=== PATIENT | male | born 1930 | race Caucasian/White ===

== ENCOUNTER 2020-09-19 16:49 | Inpatient (IN) ==
[2020-09-19] MEDS ORDERED: Naloxone 0.4 MG/ML INJ IVP PRN (20:19)
[2020-09-19] MEDS ORDERED: Artificial Tears SOLN 15 ML BOTTLE BOTH EYES PRN (20:25)
[2020-09-19] MEDS ORDERED: *HR* Dextrose 50 % in Water (Vial) 50 ML VIAL IVP PRN (20:29)
[2020-09-19] MEDS ORDERED: D5% in Water 1,000 ML IVC PRN (20:29)
[2020-09-19] MEDS ORDERED: Dextrose Gel 15 GM/37.5 ML TUBE PO PRN ×2 (20:29)
[2020-09-19] MEDS ORDERED: *HR* Metoprolol 5 MG/5 ML VIAL IVP PRN (20:42)
[2020-09-19] MEDS: FentaNYL (PF) 1,000 MCG/100 ML IV.SOLN IVC SCH (20:45)
[2020-09-19] MEDS: Chlorhexidine Rinse 15 ML MOUTHWASH MM SCH (21:18)
[2020-09-19] MEDS: Midazolam HCl 50 MG/100 ML IV.SOLN IVC SCH (22:15)
[2020-09-19 22:18] LABS: ABG Base Excess -3 mEq/L (-2 to 3); ABG HCO3 22 mEq/L (21-27); ABG Oxygen Saturation 99 % (95-98); ABG PCO2 37 mmHg (35-45); ABG PH 7.38 pH Units (7.32-7.45); ABG PO2 155 mmHg (85-104); ABG TCO2 23 mEq/L (20-26); Blood Gas VT 450 cc
[2020-09-19] MEDS ORDERED: Amiodarone Premix 360 MG/200 ML BAG IVC ONE (22:45)
[2020-09-19] MEDS: Insulin LISPRO 300 UNITS/3 ML VIAL SUBQ SCH (23:24)
[2020-09-19] MEDS: Artificial Tears SOLN 15 ML BOTTLE BOTH EYES SCH (23:24)
[2020-09-20] MEDS: Amiodarone Premix 360 MG/200 ML BAG IVC SCH ×2 (00:53→13:40)
[2020-09-20] MEDS: Artificial Tears SOLN 15 ML BOTTLE BOTH EYES SCH ×5 (03:02→19:45)
[2020-09-20 03:07] LABS: Hemoglobin 9.3 g/dL (12.9-16.9); Mean Corpuscular Hemoglobin 28.7 pg (28.0-33.3); Mean Corpuscular Volume 92.6 fL (83.0-100.0); Mean Platelet Volume 10.1 fL (9.4-12.4); Platelet Count 227 K/mcL (140-400); Red Blood Count 3.24 M/mcL (4.19-5.50); Red Cell Distribution Width 15.5 % (11.5-14.5); White Blood Count 9.9 K/mcL (4.3-11.1)
[2020-09-20 03:15] LABS: INR 1.6; Prothrombin Time 17.7 Seconds (9.4-12.1)
[2020-09-20 03:30] LABS: Alanine Aminotransferase 8 Units/L (7-52); Albumin 2.8 g/dL (3.5-5.7); Albumin/Globulin Ratio 0.8 (1.1-2.2); Alkaline Phosphatase 53 Units/L (34-104); Anisocytosis 1+ (Not Present); Aspartate Amino Transferase 9 Units/L (13-39); BUN/Creatinine Ratio 43 (6-26); Bilirubin,Direct 0.1 mg/dL (0.0-0.2); Bilirubin,Indirect 0.3 mg/dL (0.0-1.0); Bilirubin,Total 0.4 mg/dL (0.3-1.0); Blood Urea Nitrogen 54 mg/dL (8-23); Calcium 8.4 mg/dL (8.6-10.3); Carbon Dioxide 23 mEq/L (23-29); Chloride 112 mEq/L (98-107); Globulin 3.4 g/dL (2.4-3.5); Glucose 173 mg/dL (70-105); Lymphocytes # 1.8 K/mcL (0.6-4.6); Monocytes # 0.2 K/mcL (0.0-1.3); Neutrophils # 7.7 K/mcL (1.6-8.9); Osmolality,Calculated 319 (280-300); Platelet Estimate Normal (Normal); Poikilocytosis 1+ (Not Present); Potassium 3.4 mEq/L (3.5-5.1); Sodium 145 mEq/L (136-145); Total Protein 6.2 g/dL (6.4-8.9); eGFR For African Americans > 60 (> 60); eGFR For Non-African Americans 53 (> 60)
[2020-09-20 03:31] LABS: Reactive Lymphocytes Present (Not Present)
[2020-09-20 03:35] LABS: Troponin I 0.06 ng/mL (< 0.04)
[2020-09-20 04:19] LABS: ABG Base Excess -1 mEq/L (-2 to 3); ABG HCO3 24 mEq/L (21-27); ABG Oxygen Saturation 97 % (95-98); ABG PCO2 42 mmHg (35-45); ABG PH 7.37 pH Units (7.32-7.45); ABG PO2 94 mmHg (85-104); ABG TCO2 25 mEq/L (20-26); Blood Gas VT 450 cc
[2020-09-20] MEDS: Insulin LISPRO 300 UNITS/3 ML VIAL SUBQ SCH ×3 (05:07→17:21)
[2020-09-20 05:51] LABS: Digoxin 2.9 ng/mL (0.8-2.0)
[2020-09-20] MEDS: *HR* Enoxaparin 40 MG/0.4 ML SYRINGE SQ SCH (06:04)
[2020-09-20] MEDS: Pantoprazole 40 MG VIAL IVP SCH (07:20)
[2020-09-20] MEDS: Chlorhexidine Rinse 15 ML MOUTHWASH MM SCH ×2 (07:20→19:43)
[2020-09-20 10:01] LABS: BUN/Creatinine Ratio 46 (6-26); Blood Urea Nitrogen 54 mg/dL (8-23); Calcium 8.7 mg/dL (8.6-10.3); Carbon Dioxide 24 mEq/L (23-29); Chloride 114 mEq/L (98-107); Glucose 145 mg/dL (70-105); Osmolality,Calculated 317 (280-300); Potassium 3.9 mEq/L (3.5-5.1); Sodium 145 mEq/L (136-145); eGFR For African Americans > 60 (> 60); eGFR For Non-African Americans 59 (> 60)
[2020-09-20] MEDS ORDERED: Sennosides/Docusate Sodium TABLET PO SCH (10:30)
[2020-09-20] MEDS ORDERED: Perflutren Lipid Microsphere 1.3 ML in 0.9 % Sodium Chloride 8.7 ML IVP PRN (14:27)
[2020-09-20] MEDS: Docusate Oral Soln 100 MG/10 ML UDC GTUBE SCH (14:31)
[2020-09-20] MEDS: Doxycycline 100 MG in 0.9 % Sodium Chloride Mini Bag 100 ML IVPB SCH (17:10)
[2020-09-20] MEDS: FentaNYL (PF) 1,000 MCG/100 ML IV.SOLN IVC SCH (19:36)
[2020-09-20] MEDS: Midazolam HCl 50 MG/100 ML IV.SOLN IVC SCH (19:36)
[2020-09-20] MEDS: Piperacillin/Tazobactam 3.375 GM in 0.9 % Sodium Chloride Mini Bag 100 ML IVPB SCH (19:43)
[2020-09-21] MEDS: Insulin LISPRO 300 UNITS/3 ML VIAL SUBQ SCH ×3 (00:02→12:11)
[2020-09-21] MEDS: Artificial Tears SOLN 15 ML BOTTLE BOTH EYES SCH ×5 (00:03→15:27)
[2020-09-21] MEDS: Amiodarone Premix 360 MG/200 ML BAG IVC SCH ×2 (01:11→12:29)
[2020-09-21] MEDS: Piperacillin/Tazobactam 3.375 GM in 0.9 % Sodium Chloride Mini Bag 100 ML IVPB SCH ×3 (04:12→21:05)
[2020-09-21 04:20] LABS: Hematocrit 28.5 % (37.5-50.1); Hemoglobin 8.8 g/dL (12.9-16.9); Lymphocytes # 1.2 K/mcL (0.6-4.6); Mean Corpuscular HGB Conc 30.9 g/dL (31.6-35.5); Mean Corpuscular Hemoglobin 27.9 pg (28.0-33.3); Mean Corpuscular Volume 90.5 fL (83.0-100.0); Mean Platelet Volume 10.1 fL (9.4-12.4); Platelet Count 215 K/mcL (140-400); Red Blood Count 3.15 M/mcL (4.19-5.50); Red Cell Distribution Width 15.7 % (11.5-14.5); White Blood Count 11.7 K/mcL (4.3-11.1)
[2020-09-21 04:38] LABS: BUN/Creatinine Ratio 47 (6-26); Blood Urea Nitrogen 45 mg/dL (8-23); Calcium 8.9 mg/dL (8.6-10.3); Carbon Dioxide 24 mEq/L (23-29); Chloride 114 mEq/L (98-107); Glucose 166 mg/dL (70-105); Osmolality,Calculated 319 (280-300); Potassium 3.3 mEq/L (3.5-5.1); Sodium 147 mEq/L (136-145); eGFR For African Americans > 60 (> 60); eGFR For Non-African Americans > 60 (> 60)
[2020-09-21 04:41] LABS: ABG Base Excess -1 mEq/L (-2 to 3); ABG HCO3 24 mEq/L (21-27); ABG Oxygen Saturation 96 % (95-98); ABG PCO2 37 mmHg (35-45); ABG PH 7.41 pH Units (7.32-7.45); ABG PO2 78 mmHg (85-104); ABG TCO2 25 mEq/L (20-26); Blood Gas VT 430 cc
[2020-09-21 04:56] LABS: Neutrophils # 10.5 K/mcL (1.6-8.9)
[2020-09-21 04:57] LABS: Platelet Estimate Normal (Normal); Reactive Lymphocytes Present (Not Present)
[2020-09-21] MEDS: Doxycycline 100 MG in 0.9 % Sodium Chloride Mini Bag 100 ML IVPB SCH (05:14)
[2020-09-21] MEDS: Docusate Oral Soln 100 MG/10 ML UDC GTUBE SCH (07:29)
[2020-09-21] MEDS: Chlorhexidine Rinse 15 ML MOUTHWASH MM SCH (07:29)
[2020-09-21] MEDS: Pantoprazole 40 MG VIAL IVP SCH (07:29)
[2020-09-21] MEDS: *HR* Enoxaparin 40 MG/0.4 ML SYRINGE SQ SCH (07:29)
[2020-09-21] MEDS ORDERED: *HR* Metoprolol 5 MG/5 ML VIAL IVP PRN (12:01)
[2020-09-21] MEDS ORDERED: *HR* Metoprolol 5 MG/5 ML VIAL IVP ONE (12:02)
[2020-09-21] MEDS: FentaNYL (PF) 1,000 MCG/100 ML IV.SOLN IVC SCH (12:29)
[2020-09-21] MEDS ORDERED: Morphine Sulfate 2 MG/ML SYRINGE IVP PRN (13:37)
[2020-09-21] MEDS ORDERED: Atropine 1% Opth Drops 100 DROP/5 ML BOTTLE SL PRN (13:42)
[2020-09-21] MEDS: *HR* LORazepam 2 MG/ML VIAL IVP PRN ×2 (15:18→19:24)
[2020-09-21 19:23] VITALS: BP 102/65
== END 2020-09-21 22:00 | disposition expired | DRG 871 ==
LOC: ICNU 19:07 → 2ANU 09-21 17:22
PROVIDERS: ADMIT Pediatrics; ATTEND General Practice